=== PATIENT | male | born 1955 | race Caucasian/White ===

== ENCOUNTER → 2019-11-18 | Outpatient (CLI) | payer OTHER ==
[2015-12-06 10:51] VITALS: BP 137/81
[~2019-11-18] MED LIST: ATOR40TA PO; FURO40TA4 PO; LISI1TAB20 PO; METO-239 PO; POTA20TA4 PO
[2019-11-18 14:16] LABS: BASO % 0 % (0-3); EOS # 0.1 x10^3/uL (0.0-0.7); EOS % 0 % (0-3); LYMPH # 0.7 x10^3/uL (1.0-4.8); LYMPH % 5 % (24-48); MEAN CORPUSCULAR HEMOGLOBIN 28 pg (25-35); MEAN CORPUSCULAR HGB CONC 34 g/dL (31-37); MEAN CORPUSCULAR VOLUME 83 fL (79-100); MONO # 1.4 x10^3/uL (0.0-1.1); MONO % 11 % (0-9); NEUT # 10.8 x10^3uL (1.8-7.7); NEUT % 84 % (31-73); PLATELET COUNT 286 x10^3/uL (140-400); RED BLOOD COUNT 4.97 x10^6/uL (4.30-5.70); RED CELL DISTRIBUTION WIDTH 15.4 % (11.5-14.5); WHITE BLOOD COUNT 12.9 x10^3/uL (4.0-11.0)
--- NOTE | 2019-11-18 14:16 | RAD ---
CHEST PA LATERAL History: Acute respiratory infection Comparison: November 22, 2012 Findings: Patchy bibasilar opacities. No pleural effusion. Normal heart size. No pneumothorax. DISH related changes of the thoracic spine. Impression: 1. Patchy bibasilar opacities, may represent atelectasis or pneumonia. Recommend follow-up to ensure resolution. Electronically signed by: Leonardo sEcoto DO (11/18/2019 2:13 PM) [id number]
[2019-11-18 14:24] LABS: CALCIUM 8.4 mg/dL (8.5-10.1); CREATININE 0.8 mg/dL (0.7-1.3); POTASSIUM 3.7 mmol/L (3.5-5.1)
[2019-11-18 14:30] LABS: ALBUMIN 2.6 g/dL (3.4-5.0); ALBUMIN/GLOBULIN RATIO 0.6 (1.0-1.7); TOTAL BILIRUBIN 1.3 mg/dL (0.2-1.0); TOTAL PROTEIN 6.9 g/dL (6.4-8.2)
== END | disposition home or self-care (01) ==
LOC: DXRAD 13:47
PROVIDERS: ATTEND Specialist
DX: J98.4 Other disorders of lung (principal)
CPT/HCPCS: 36415; 71046; 80053; 85025

== ENCOUNTER → 2020-03-05 | Outpatient (CLI) | payer OTHER ==
[2015-12-06 10:51] VITALS: BP 137/81
[2020-03-05 11:58] LABS: ALBUMIN 3.8 g/dL (3.4-5.0); ALBUMIN/GLOBULIN RATIO 1.2 (1.0-1.7); CALCIUM 8.7 mg/dL (8.5-10.1); POTASSIUM 4.2 mmol/L (3.5-5.1); TOTAL BILIRUBIN 1.4 mg/dL (0.2-1.0); TOTAL PROTEIN 7.1 g/dL (6.4-8.2)
[2020-03-05 13:11] LABS: BASO % 1 % (0-3); EOS # 0.1 x10^3/uL (0.0-0.7); EOS % 3 % (0-3); HEMATOCRIT 44.8 % (39.0-53.0); HEMOGLOBIN 15.8 g/dL (13.0-17.5); LYMPH % 24 % (24-48); MEAN CORPUSCULAR HEMOGLOBIN 30 pg (25-35); MEAN CORPUSCULAR HGB CONC 35 g/dL (31-37); MEAN CORPUSCULAR VOLUME 83 fL (79-100); MONO # 0.6 x10^3/uL (0.0-1.1); MONO % 14 % (0-9); NEUT # 2.4 x10^3uL (1.8-7.7); NEUT % 58 % (31-73); PLATELET COUNT 118 x10^3/uL (140-400); RED BLOOD COUNT 5.37 x10^6/uL (4.30-5.70); RED CELL DISTRIBUTION WIDTH 15.2 % (11.5-14.5); WHITE BLOOD COUNT 4.2 x10^3/uL (4.0-11.0)
== END ==
LOC: LAB 10:02
PROVIDERS: ATTEND Internal Medicine Hematology & Oncology
DX: C18.7 Malignant neoplasm of sigmoid colon (principal)
CPT/HCPCS: 36415; 80053; 82378; 85025

== ENCOUNTER → 2021-10-07 | Outpatient (CLI) | payer OTHER ==
[2015-12-06 10:51] VITALS: BP 137/81
[~2021-10-07] MED LIST changes: -LISI1TAB20 PO; +LISI1TAB39 PO; +POTA-121 PO; -POTA20TA4 PO
--- NOTE | 2021-10-07 08:58 | RAD ---
EXAM: Chest, 2 views. HISTORY: Pneumonia. COMPARISON: 08/28/2021 FINDINGS: 2 views of the chest are obtained. There is linear lingular opacity due to atelectasis, sca rring or interstitial infiltrate. There is no consolidation, pleural effusion or pneumothorax. The he art is normal in size. IMPRESSION: Lingular atelectasis, scarring or interstitial infiltrate. Electronically signed by: Lorraine Michel MD (10/07/2021 8:56 AM) [id number]
== END ==
LOC: RAD 08:17
PROVIDERS: ATTEND Specialist
DX: J18.9 Pneumonia, unspecified organism (principal); J98.11 Atelectasis
CPT/HCPCS: 71046